=== PATIENT | female | born 1985 | race Two or more races ===

== ENCOUNTER 2018-04-18 22:47 | Observation (INO) | payer OTHER, MEDICAID ==
[~2018-04-18] VITALS: Ht 152.4 cm; Wt 47.6 kg
[2018-04-19] MEDS ORDERED: LACTATED RINGERS 1,000 ML IV SCH (00:45)
[2018-04-19 00:54] LABS: CLARITY URINE CLEAR (CLEAR); COLOR URINE YELLOW (YELLOW); KETONES URINE 1+ (NEGATIVE); LEUKOCYTE ESTERASE URINE 2+ (NEGATIVE); NITRITE URINE NEGATIVE (NEGATIVE); OCCULT BLOOD URINE TRACE (NEGATIVE); PROTEIN URINE NEGATIVE (NEGATIVE); SPECIFIC GRAVITY URINE 1.003 (1.005-1.030); UROBILINOGEN URINE 0.2 E.U./dL (0.2-1.0)
[2018-04-19 01:32] LABS: BASOPHILS % 0.2 % (0.0-2.0); EOSINOPHILS % 0.2 % (0.0-5.0); HEMATOCRIT. 31.3 % (36.0-48.0); HEMOGLOBIN. 10.9 g/dL (12.0-16.0); LYMPHOCYTES % 8.3 % (20.0-50.0); MEAN CORPUSCULAR HEMOGLOBIN 34.3 pg (28.0-32.0); MEAN CORPUSCULAR VOLUME 97.9 fL (81.0-99.0); MEAN PLATELET VOLUME 10.3 fl (7.4-10.4); MONOCYTES % 8.8 % (2.0-8.0); NEUTROPHILS % 82.5 % (40.0-76.0); PLATELET 157 x1000/uL (130-400); RED CELL DISTRIBUTION WIDTH 13.2 % (11.6-14.6)
[2018-04-19 01:35] LABS: CHLORIDE 98 mEq/L (98-107)
[2018-04-19] MEDS ORDERED: ACETAMINOPHEN 500MG TABLET PO NR (02:30)
[2018-04-19] MEDS ORDERED: CEFAZOLIN 1000MG PREMIX 50 ML IV NR (03:00)
== END 2018-04-19 06:10 | disposition home or self-care (01) ==
LOC: L&D 22:47
PROVIDERS: ADMIT Obstetrics & Gynecology; ATTEND Obstetrics & Gynecology
DX: O62.9 Abnormality of forces of labor, unspecified (principal); O26.899 Other specified pregnancy related conditions, unspecified trimester; R50.9 Fever, unspecified; Z3A.00 Weeks of gestation of pregnancy not specified
CPT/HCPCS: 36415; 80053; 81003; 85025; 96365; 99281; G0378; J0690; 96360; 96361; J7120